=== PATIENT | female | born 1965 | race African-American/Black ===

== ENCOUNTER 2017-06-26 09:03 | Outpatient (CLI) | payer OTHER, MEDICARE, MEDICAID | END 2017-06-26 11:03 | disposition home or self-care (01) | LOC: ECT 09:03 | DX: F33.2 Major depressive disorder, recurrent severe without psychotic features (principal); F06.1 Catatonic disorder due to known physiological condition; E11.9 Type 2 diabetes mellitus without complications; Z86.718 Personal history of other venous thrombosis and embolism; Z98.51 Tubal ligation status; E11.22 Type 2 diabetes mellitus with diabetic chronic kidney disease; N18.2 Chronic kidney disease, stage 2 (mild); M26.609 Unspecified temporomandibular joint disorder, unspecified side; G24.01 Drug induced subacute dyskinesia; Z79.01 Long term (current) use of anticoagulants; Z79.84 Long term (current) use of oral hypoglycemic drugs ==

== ENCOUNTER 2017-08-13 08:29 | Outpatient (RCR) | payer OTHER, MEDICARE, MEDICAID ==
[~2017-08-13] VITALS: Ht 162.6 cm; Wt 48.1 kg
[2017-08-13] MEDS ORDERED: Methohexital Sodium Syr 100mg/10ml IVP ONE ×2 (08:30)
[2017-08-13] MEDS ORDERED: Succinylcholine 20mg/ml 10ml vial ONE ×2 (08:30)
[2017-08-13] MEDS ORDERED: NS 500ML ONE ×2 (08:30)
[2017-08-13 08:31] VITALS: BP 117/91
[2017-08-13] MEDS ORDERED: Sodium Chloride 500ML 500 ML IV ONE (08:46)
[2017-08-13 08:50] VITALS: BP 152/98
[2017-08-13 08:55] VITALS: BP 161/98
[2017-08-13 09:00] VITALS: BP 152/96
[2017-08-13 09:05] VITALS: BP 155/101
[2017-08-15] MEDS ORDERED: Methohexital Sodium Syr 100mg/10ml IVP ONE (07:00)
[2017-08-15] MEDS ORDERED: NS 500ML ONE (07:00)
[2017-08-15] MEDS ORDERED: Succinylcholine 20mg/ml 10ml vial ONE (07:00)
[2017-08-15 08:21] VITALS: BP 131/96
[2017-08-15] MEDS ORDERED: Sodium Chloride 500ML 500 ML IV ONE (08:33)
[2017-08-15 08:35] VITALS: BP 157/103
[2017-08-15 08:40] VITALS: BP 160/103
[2017-08-15 08:45] VITALS: BP 164/97
[2017-08-15 08:50] VITALS: BP 159/102
[2017-08-18] MEDS ORDERED: Methohexital Sodium Syr 100mg/10ml IVP ONE (07:00)
[2017-08-18] MEDS ORDERED: Succinylcholine 20mg/ml 10ml vial ONE (07:00)
[2017-08-18] MEDS ORDERED: NS 500ML ONE (07:00)
[2017-08-18 08:47] VITALS: BP 139/101
[2017-08-18 09:00] VITALS: BP 153/103
[2017-08-18] MEDS ORDERED: Sodium Chloride 500ML 500 ML IV ONE (09:00)
[2017-08-18 09:05] VITALS: BP 154/99
[2017-08-18 09:10] VITALS: BP 150/83
[2017-08-18 09:15] VITALS: BP 153/94
[2017-08-20 08:35] VITALS: BP 121/100
[2017-08-20] MEDS ORDERED: Sodium Chloride 500ML 500 ML IV ONE (08:48)
[2017-08-20 08:50] VITALS: BP 161/109
[2017-08-20 08:55] VITALS: BP 155/104
[2017-08-20 09:00] VITALS: BP 151/103
[2017-08-20 09:05] VITALS: BP 157/99
[2017-08-22] MEDS ORDERED: Methohexital Sodium Syr 100mg/10ml IVP ONE (06:00)
[2017-08-22] MEDS ORDERED: Succinylcholine 20mg/ml 10ml vial ONE (06:00)
[2017-08-22] MEDS ORDERED: NS 500ML ONE (06:00)
[2017-08-22 08:06] VITALS: BP 117/98
[2017-08-22] MEDS ORDERED: Sodium Chloride 500ML 500 ML IV ONE (08:23)
[2017-08-22 08:25] VITALS: BP 170/108
[2017-08-22 08:30] VITALS: BP 164/84
[2017-08-22 08:35] VITALS: BP 160/102
[2017-08-22 08:40] VITALS: BP_SYST 160; BP_SYST 165; BP_DIAS 107; BP_DIAS 86
[2017-08-25] MEDS ORDERED: Succinylcholine 20mg/ml 10ml vial ONE (07:00)
[2017-08-25] MEDS ORDERED: NS 500ML ONE (07:00)
[2017-08-25] MEDS ORDERED: Methohexital Sodium Syr 100mg/10ml IVP ONE (07:00)
[2017-08-25 11:14] VITALS: BP 128/93
[2017-08-25] MEDS ORDERED: Atropine Sulfate 0.4mg/ml inj IVP PRN (11:32)
[2017-08-25] MEDS ORDERED: Sodium Chloride 500ML 500 ML IV ONE (11:32)
[2017-08-25 11:40] VITALS: BP 169/110
[2017-08-25 11:50] VITALS: BP 165/111
[2017-08-25 11:55] VITALS: BP 139/89
[2017-08-25 12:00] VITALS: BP 134/98
[2017-08-27] MEDS ORDERED: Methohexital Sodium Syr 100mg/10ml IVP ONE (07:00)
[2017-08-27] MEDS ORDERED: Succinylcholine 20mg/ml 10ml vial ONE (07:00)
[2017-08-27] MEDS ORDERED: NS 500ML ONE (07:00)
[2017-08-27 09:16] VITALS: BP 144/108
[2017-08-27] MEDS ORDERED: Atropine Sulfate 0.4mg/ml inj IVP PRN (09:33)
[2017-08-27] MEDS ORDERED: Sodium Chloride 500ML 500 ML IV ONE (09:33)
[2017-08-27 09:35] VITALS: BP 175/102
[2017-08-27 09:40] VITALS: BP 170/102
[2017-08-27 09:45] VITALS: BP 162/99
[2017-08-27 09:50] VITALS: BP 158/99
[2017-08-29] MEDS ORDERED: Methohexital Sodium Syr 100mg/10ml IVP ONE (07:00)
[2017-08-29] MEDS ORDERED: Succinylcholine 20mg/ml 10ml vial ONE (07:00)
[2017-08-29] MEDS ORDERED: NS 500ML ONE (07:00)
[2017-08-29 10:22] VITALS: BP 141/101
[2017-08-29] MEDS ORDERED: Sodium Chloride 500ML 500 ML IV ONE (10:44)
[2017-08-29 10:45] VITALS: BP 151/105
[2017-08-29 10:50] VITALS: BP 151/97
[2017-08-29 10:55] VITALS: BP 160/101
[2017-08-29 11:00] VITALS: BP 151/89
[2017-09-01] MEDS ORDERED: Methohexital Sodium Syr 100mg/10ml IVP ONE (07:00)
[2017-09-01] MEDS ORDERED: Succinylcholine 20mg/ml 10ml vial ONE (07:00)
[2017-09-01] MEDS ORDERED: NS 500ML ONE (07:00)
[2017-09-01 11:06] VITALS: BP 112/93
[2017-09-01] MEDS ORDERED: Sodium Chloride 500ML 500 ML IV ONE (11:23)
[2017-09-01 11:25] VITALS: BP 166/109
[2017-09-01 11:30] VITALS: BP 159/102
[2017-09-01 11:35] VITALS: BP_SYST 160; BP_SYST 161; BP_DIAS 101; BP_DIAS 95
[2017-09-03] MEDS ORDERED: Methohexital Sodium Syr 100mg/10ml IVP ONE (08:30)
[2017-09-03] MEDS ORDERED: Succinylcholine 20mg/ml 10ml vial ONE (08:30)
[2017-09-03] MEDS ORDERED: NS 500ML ONE (08:30)
[2017-09-03 11:27] VITALS: BP 146/95
[2017-09-03 11:50] VITALS: BP 178/112
[2017-09-03] MEDS ORDERED: Sodium Chloride 500ML 500 ML IV ONE (11:52)
[2017-09-03] MEDS ORDERED: Atropine Sulfate 0.4mg/ml inj IVP PRN (11:52)
[2017-09-03 11:55] VITALS: BP 175/110
[2017-09-03 12:00] VITALS: BP 159/117
[2017-09-03 12:05] VITALS: BP 162/100
[2017-09-05] MEDS ORDERED: Succinylcholine 20mg/ml 10ml vial ONE (08:00)
[2017-09-05] MEDS ORDERED: NS 500ML ONE (08:00)
[2017-09-05] MEDS ORDERED: Methohexital Sodium Syr 100mg/10ml IVP ONE (08:00)
[2017-09-05 10:28] VITALS: BP 135/98
[2017-09-05] MEDS ORDERED: Sodium Chloride 500ML 500 ML IV ONE (10:48)
[2017-09-05 10:50] VITALS: BP 156/101
[2017-09-05 11:00] VITALS: BP 160/101
[2017-09-05 11:05] VITALS: BP 161/102
[2017-09-05 11:10] VITALS: BP 147/101
[2017-09-05 11:15] VITALS: BP 167/98
[2017-09-10] MEDS ORDERED: Succinylcholine 20mg/ml 10ml vial ONE (07:00)
[2017-09-10] MEDS ORDERED: NS 500ML ONE (07:00)
[2017-09-10] MEDS ORDERED: Methohexital Sodium Syr 100mg/10ml IVP ONE (07:00)
[2017-09-10 11:27] VITALS: BP 130/93
[2017-09-10 11:42] VITALS: BP 156/103
[2017-09-10 11:47] VITALS: BP 146/99
[2017-09-10] MEDS ORDERED: Sodium Chloride 500ML 500 ML IV ONE (11:48)
[2017-09-10 11:52] VITALS: BP 144/98
[2017-09-10 11:57] VITALS: BP 146/93
== END 2017-09-11 | disposition home or self-care (01) ==
LOC: ECT 08:29
DX: F32.2 Major depressive disorder, single episode, severe without psychotic features (principal)
CPT/HCPCS: 90870; J0330; J7040

== ENCOUNTER 2017-09-12 08:29 | Outpatient (RCR) | payer OTHER, MEDICARE, MEDICAID ==
[~2017-09-12] VITALS: Ht 162.6 cm; Wt 48.1 kg
[2017-09-12] MEDS ORDERED: NS 500ML ONE ×2 (08:30)
[2017-09-12] MEDS ORDERED: Methohexital Sodium Syr 100mg/10ml IVP ONE ×2 (08:30)
[2017-09-12] MEDS ORDERED: Succinylcholine 20mg/ml 10ml vial ONE ×2 (08:30)
[2017-09-12] MEDS ORDERED: Sodium Chloride 500ML 500 ML IV ONE (09:30)
[2017-09-12 09:38] VITALS: BP 132/104
[2017-09-12 09:50] VITALS: BP 146/98
[2017-09-12 09:55] VITALS: BP 153/99
[2017-09-12 10:00] VITALS: BP 153/100
[2017-09-12 10:05] VITALS: BP 154/100
[2017-09-15] MEDS ORDERED: Methohexital Sodium Syr 100mg/10ml IVP ONE (07:00)
[2017-09-15] MEDS ORDERED: NS 500ML ONE (07:00)
[2017-09-15] MEDS ORDERED: Succinylcholine 20mg/ml 10ml vial ONE (07:00)
[2017-09-15 10:07] VITALS: BP 130/90
[2017-09-15] MEDS ORDERED: Sodium Chloride 500ML 500 ML IV ONE (10:22)
[2017-09-15 10:25] VITALS: BP 146/103
[2017-09-15 10:30] VITALS: BP 152/104
[2017-09-15 10:35] VITALS: BP 152/90
[2017-09-15 10:40] VITALS: BP 152/94
[2017-09-17] MEDS ORDERED: Methohexital Sodium Syr 100mg/10ml IVP ONE (07:00)
[2017-09-17] MEDS ORDERED: Succinylcholine 20mg/ml 10ml vial ONE (07:00)
[2017-09-17] MEDS ORDERED: NS 500ML ONE (07:00)
[2017-09-17 09:15] VITALS: BP 139/103
[2017-09-17] MEDS ORDERED: Sodium Chloride 500ML 500 ML IV ONE (09:26)
[2017-09-17 09:30] VITALS: BP 165/104
[2017-09-17 09:35] VITALS: BP 152/103
[2017-09-17 09:40] VITALS: BP 146/105
[2017-09-17 09:42] VITALS: BP 162/106
[2017-09-19] MEDS ORDERED: Methohexital Sodium Syr 100mg/10ml IVP ONE (07:00)
[2017-09-19] MEDS ORDERED: NS 500ML ONE (07:00)
[2017-09-19] MEDS ORDERED: Succinylcholine 20mg/ml 10ml vial ONE (07:00)
[2017-09-19 08:33] VITALS: BP 143/105
[2017-09-19] MEDS ORDERED: Sodium Chloride 500ML 500 ML IV ONE (08:51)
[2017-09-19 08:55] VITALS: BP 139/85
[2017-09-19 09:00] VITALS: BP 149/92
[2017-09-19 09:05] VITALS: BP 161/94
[2017-09-19 09:10] VITALS: BP 160/100
[2017-09-22] MEDS ORDERED: Succinylcholine 20mg/ml 10ml vial ONE (07:00)
[2017-09-22] MEDS ORDERED: NS 500ML ONE (07:00)
[2017-09-22] MEDS ORDERED: Methohexital Sodium Syr 100mg/10ml IVP ONE (07:00)
[2017-09-22 10:41] VITALS: BP 137/92
[2017-09-22] MEDS ORDERED: Sodium Chloride 500ML 500 ML IV ONE (11:03)
[2017-09-22] MEDS ORDERED: Atropine Sulfate 0.4mg/ml inj IVP PRN (11:03)
[2017-09-22 11:05] VITALS: BP 162/97
[2017-09-22 11:10] VITALS: BP 136/91
[2017-09-22 11:15] VITALS: BP 142/95
[2017-09-22 11:20] VITALS: BP 146/94
[2017-09-22 11:25] VITALS: BP 142/96
[2017-09-26] MEDS ORDERED: Succinylcholine 20mg/ml 10ml vial ONE (07:00)
[2017-09-26] MEDS ORDERED: NS 500ML ONE (07:00)
[2017-09-26] MEDS ORDERED: Methohexital Sodium Syr 100mg/10ml IVP ONE (07:00)
[2017-09-26 08:12] VITALS: BP 138/111
[2017-09-26] MEDS ORDERED: Atropine Sulfate 0.4mg/ml inj IVP PRN ×2 (08:33→08:53)
[2017-09-26] MEDS ORDERED: Sodium Chloride 500ML 500 ML IV ONE ×2 (08:33→08:53)
[2017-09-26 08:35] VITALS: BP 162/106
[2017-09-26 08:40] VITALS: BP 149/100
[2017-09-26 08:45] VITALS: BP 161/95
[2017-09-26 08:50] VITALS: BP 156/105
[2017-09-29 09:26] VITALS: BP 136/101
[2017-09-29] MEDS ORDERED: Sodium Chloride 500ML 500 ML IV ONE (09:44)
[2017-09-29 09:45] VITALS: BP 178/113
[2017-09-29 09:50] VITALS: BP 163/101
[2017-09-29 09:55] VITALS: BP 169/72
[2017-09-29 10:00] VITALS: BP 147/105
[2017-10-06] MEDS ORDERED: Succinylcholine 20mg/ml 10ml vial ONE (07:00)
[2017-10-06] MEDS ORDERED: Methohexital Sodium Syr 100mg/10ml IVP ONE (07:00)
[2017-10-06] MEDS ORDERED: NS 500ML ONE (07:00)
[2017-10-06 09:57] VITALS: BP 116/92
[2017-10-06] MEDS ORDERED: Sodium Chloride 500ML 500 ML IV ONE (10:15)
[2017-10-06 10:20] VITALS: BP 153/106
[2017-10-06 10:25] VITALS: BP 134/99
[2017-10-06 10:30] VITALS: BP 131/97
[2017-10-06 10:35] VITALS: BP 133/93
== END 2017-10-11 | disposition home or self-care (01) ==
LOC: ECT 08:29
DX: F32.2 Major depressive disorder, single episode, severe without psychotic features (principal)
CPT/HCPCS: 90870; J0330; J7040

== ENCOUNTER 2017-10-13 07:07 | Outpatient (RCR) | payer OTHER, MEDICARE, MEDICAID ==
[~2017-10-13] VITALS: Ht 162.6 cm; Wt 48.1 kg
[2017-10-13] MEDS ORDERED: NS 500ML ONE (07:08)
[2017-10-13] MEDS ORDERED: Succinylcholine 20mg/ml 10ml vial ONE (07:08)
[2017-10-13] MEDS ORDERED: Methohexital Sodium Syr 100mg/10ml IVP ONE (07:08)
[2017-10-13] MEDS ORDERED: Sodium Chloride 500ML 500 ML IV ONE (10:12)
[2017-10-13 10:15] VITALS: BP 160/98
[2017-10-13 10:20] VITALS: BP 142/93
[2017-10-13 10:25] VITALS: BP 145/74
[2017-10-13 10:30] VITALS: BP 141/92
[2017-10-13 10:35] VITALS: BP 147/93
[2017-10-20] MEDS ORDERED: Succinylcholine 20mg/ml 10ml vial ONE (07:00)
[2017-10-20] MEDS ORDERED: NS 500ML ONE (07:00)
[2017-10-20] MEDS ORDERED: Methohexital Sodium Syr 100mg/10ml IVP ONE (07:00)
[2017-10-20] MEDS ORDERED: Sodium Chloride 500ML 500 ML IV ONE (10:23)
[2017-10-20 10:25] VITALS: BP 172/112
[2017-10-20 10:30] VITALS: BP 162/108
[2017-10-20 10:35] VITALS: BP 162/102
[2017-10-20 10:40] VITALS: BP 162/102
[2017-10-20 10:45] VITALS: BP 161/102
[2017-10-20 10:50] VITALS: BP 162/105
[2017-10-29] MEDS ORDERED: Succinylcholine 20mg/ml 10ml vial ONE (08:00)
[2017-10-29] MEDS ORDERED: NS 500ML ONE (08:00)
[2017-10-29] MEDS ORDERED: Methohexital Sodium Syr 100mg/10ml IVP ONE (08:00)
[2017-10-29] MEDS ORDERED: Sodium Chloride 500ML 500 ML IV ONE (10:47)
[2017-10-29 10:50] VITALS: BP 168/107
[2017-10-29 10:55] VITALS: BP 161/104
[2017-10-29 11:00] VITALS: BP 161/99
[2017-10-29 11:05] VITALS: BP 155/101
[2017-10-29 11:10] VITALS: BP 165/92
== END 2017-11-11 | disposition home or self-care (01) ==
LOC: ECT 07:07
DX: F32.2 Major depressive disorder, single episode, severe without psychotic features (principal)
CPT/HCPCS: 90870; J0330; J7040

== ENCOUNTER 2017-11-12 05:39 | Outpatient (RCR) | payer OTHER, MEDICARE, MEDICAID ==
[~2017-11-12] VITALS: Ht 162.6 cm; Wt 48.1 kg
[2017-11-12] MEDS ORDERED: NS 500ML ONE (05:40)
[2017-11-12] MEDS ORDERED: Methohexital Sodium Syr 100mg/10ml IVP ONE (05:40)
[2017-11-12] MEDS ORDERED: Succinylcholine 20mg/ml 10ml vial ONE (05:40)
[2017-11-12 08:51] VITALS: BP 111/92
[2017-11-12 09:10] VITALS: BP 162/101
[2017-11-12] MEDS ORDERED: Sodium Chloride 500ML 500 ML IV ONE (09:10)
[2017-11-12 09:15] VITALS: BP 141/94
[2017-11-12 09:20] VITALS: BP 147/91
[2017-11-12 09:25] VITALS: BP 121/86
[2017-12-03] MEDS ORDERED: Succinylcholine 20mg/ml 10ml vial ONE (08:00)
[2017-12-03] MEDS ORDERED: NS 500ML ONE (08:00)
[2017-12-03] MEDS ORDERED: Methohexital Sodium Syr 100mg/10ml IVP ONE (08:00)
[2017-12-03 09:09] VITALS: BP 132/91
[2017-12-03] MEDS ORDERED: Sodium Chloride 500ML 500 ML IV ONE (09:22)
[2017-12-03 09:25] VITALS: BP 167/104
[2017-12-03 09:30] VITALS: BP 162/106
[2017-12-03 09:35] VITALS: BP 151/100
[2017-12-03 09:40] VITALS: BP 162/100
== END 2017-12-12 | disposition home or self-care (01) ==
LOC: ECT 05:39
DX: F32.2 Major depressive disorder, single episode, severe without psychotic features (principal)
CPT/HCPCS: 90870; J0330; J7040

== ENCOUNTER 2017-12-31 05:41 | Outpatient (RCR) | payer OTHER, MEDICARE, MEDICAID ==
[~2017-12-31] VITALS: Ht 30.5 cm; Wt 0.5 kg
[2017-12-31] MEDS ORDERED: Succinylcholine 20mg/ml 10ml vial ONE (05:42)
[2017-12-31] MEDS ORDERED: Methohexital Sodium Syr 100mg/10ml IVP ONE (05:42)
[2017-12-31] MEDS ORDERED: NS 500ML ONE (05:42)
[2017-12-31 09:45] VITALS: BP 142/101
[2017-12-31] MEDS ORDERED: Sodium Chloride 500ML 500 ML IV ONE (09:58)
[2017-12-31 10:00] VITALS: BP 183/112
[2017-12-31 10:05] VITALS: BP 175/108
[2017-12-31 10:10] VITALS: BP 165/109
[2017-12-31 10:15] VITALS: BP 155/105
== END 2018-01-11 | disposition home or self-care (01) ==
LOC: ECT 05:41
DX: F32.2 Major depressive disorder, single episode, severe without psychotic features (principal)
CPT/HCPCS: 90870; J0330; J7040

== ENCOUNTER 2018-01-26 08:40 | Outpatient (RCR) | payer OTHER, MEDICARE, MEDICAID ==
[~2018-01-26] VITALS: Ht 30.5 cm; Wt 0.5 kg
[2018-01-26 08:40] VITALS: BP 154/109
[2018-01-26] MEDS ORDERED: NS 500ML ONE (08:41)
[2018-01-26] MEDS ORDERED: Methohexital Sodium Syr 100mg/10ml IVP ONE (08:41)
[2018-01-26] MEDS ORDERED: Succinylcholine 20mg/ml 10ml vial ONE (08:41)
[2018-01-26] MEDS ORDERED: Sodium Chloride 500ML 500 ML IV ONE (08:51)
[2018-01-26 08:55] VITALS: BP 170/106
[2018-01-26 09:00] VITALS: BP 168/99
[2018-01-26 09:05] VITALS: BP 163/96
[2018-01-26 09:10] VITALS: BP 167/91
== END 2018-02-11 | disposition home or self-care (01) ==
LOC: ECT 08:40
DX: F32.2 Major depressive disorder, single episode, severe without psychotic features (principal)
CPT/HCPCS: 90870; J0330; J7040

== ENCOUNTER 2018-02-23 06:00 | Outpatient (RCR) | payer OTHER, MEDICARE, MEDICAID ==
[~2018-02-23] VITALS: Ht 162.6 cm; Wt 48.1 kg
[2018-02-23] MEDS ORDERED: NS 500ML ONE ×2 (06:01)
[2018-02-23] MEDS ORDERED: Methohexital Sodium Syr 100mg/10ml IVP ONE ×2 (06:01)
[2018-02-23] MEDS ORDERED: Succinylcholine 20mg/ml 10ml vial ONE ×2 (06:01)
[2018-02-25] MEDS ORDERED: NS 500ML ONE (06:00)
[2018-02-25] MEDS ORDERED: Succinylcholine 20mg/ml 10ml vial ONE (06:00)
[2018-02-25] MEDS ORDERED: Methohexital Sodium Syr 100mg/10ml IVP ONE (06:00)
[2018-02-25 09:41] VITALS: BP 160/94
[2018-02-25 09:55] VITALS: BP 168/64
[2018-02-25] MEDS ORDERED: Sodium Chloride 500ML 500 ML IV ONE (09:55)
[2018-02-25 10:00] VITALS: BP 164/103
[2018-02-25 10:05] VITALS: BP 168/102
[2018-02-25 10:10] VITALS: BP 161/111
[2018-02-27] MEDS ORDERED: fentaNYL 100 mcg/2 mL IV ONE (09:53)
[2018-03-02 09:56] VITALS: BP 149/102
[2018-03-02] MEDS ORDERED: Sodium Chloride 500ML 500 ML IV ONE (10:14)
[2018-03-02 10:15] VITALS: BP 165/106
[2018-03-02 10:20] VITALS: BP 159/104
[2018-03-02 10:25] VITALS: BP 154/99
[2018-03-02 10:30] VITALS: BP 153/104
[2018-03-04 10:34] VITALS: BP 123/97
[2018-03-04] MEDS ORDERED: Sodium Chloride 500ML 500 ML IV ONE (10:47)
[2018-03-04 10:50] VITALS: BP 109/57
[2018-03-04 10:55] VITALS: BP 147/20
[2018-03-04 11:00] VITALS: BP 144/75
[2018-03-09] MEDS ORDERED: Succinylcholine 20mg/ml 10ml vial ONE ×2 (08:00→14:56)
[2018-03-09] MEDS ORDERED: Methohexital Sodium Syr 100mg/10ml IVP ONE ×2 (08:00→14:56)
[2018-03-09] MEDS ORDERED: NS 500ML ONE ×2 (08:00→14:56)
[2018-03-09 10:35] VITALS: BP 139/89
[2018-03-09] MEDS ORDERED: Sodium Chloride 500ML 500 ML IV ONE (10:49)
[2018-03-09 10:50] VITALS: BP 168/104
[2018-03-09 10:55] VITALS: BP 166/114
[2018-03-09 11:00] VITALS: BP 152/88
== END 2018-03-13 | disposition home or self-care (01) ==
LOC: ECT 06:00
DX: F32.2 Major depressive disorder, single episode, severe without psychotic features (principal)
CPT/HCPCS: 90870; J0330; J7040

== ENCOUNTER 2018-03-16 06:09 | Outpatient (RCR) | payer MEDICARE, MEDICAID ==
[~2018-03-16] VITALS: Ht 162.6 cm; Wt 48.4 kg
[2018-03-16] MEDS ORDERED: Succinylcholine 20mg/ml 10ml vial ONE ×2 (06:10)
[2018-03-16] MEDS ORDERED: NS 500ML ONE ×2 (06:10)
[2018-03-16] MEDS ORDERED: Methohexital Sodium Syr 100mg/10ml IVP ONE ×2 (06:10)
[2018-03-16 09:20] VITALS: BP 139/118
[2018-03-16] MEDS ORDERED: Sodium Chloride 500ML 500 ML IV ONE (09:38)
[2018-03-16] MEDS ORDERED: Atropine Sulfate 0.4mg/ml inj IVP PRN (09:38)
[2018-03-16 09:40] VITALS: BP 158/102
[2018-03-16 09:45] VITALS: BP 165/103
[2018-03-16 09:50] VITALS: BP 178/52
[2018-03-16 09:55] VITALS: BP 158/102
[2018-03-30 10:12] VITALS: BP 139/105
[2018-03-30] MEDS ORDERED: Sodium Chloride 500ML 500 ML IV ONE (10:26)
[2018-03-30 10:30] VITALS: BP 169/103
[2018-03-30 10:35] VITALS: BP 161/112
[2018-03-30 10:40] VITALS: BP 160/95
[2018-03-30 10:45] VITALS: BP 150/105
== END 2018-04-13 | disposition home or self-care (01) ==
LOC: ECT 06:09
DX: F32.2 Major depressive disorder, single episode, severe without psychotic features (principal); E78.5 Hyperlipidemia, unspecified
CPT/HCPCS: 90870; J0330; J7040

== ENCOUNTER 2018-04-20 07:58 | Outpatient (RCR) | payer MEDICARE, MEDICAID ==
[~2018-04-20] VITALS: Ht 162.6 cm; Wt 48.1 kg
[2018-04-20] MEDS ORDERED: Methohexital Sodium Syr 100mg/10ml IVP ONE (07:59)
[2018-04-20] MEDS ORDERED: Succinylcholine 20mg/ml 10ml vial ONE (07:59)
[2018-04-20] MEDS ORDERED: NS 500ML ONE (07:59)
[2018-04-20 09:30] VITALS: BP 137/92
[2018-04-20 09:50] VITALS: BP 156/104
[2018-04-20 09:55] VITALS: BP 151/96
[2018-04-20 10:00] VITALS: BP 151/93
[2018-04-20 10:05] VITALS: BP 157/104
[2018-05-11] MEDS ORDERED: Succinylcholine 20mg/ml 10ml vial ONE (07:00)
[2018-05-11] MEDS ORDERED: Methohexital Sodium Syr 100mg/10ml IVP ONE (07:00)
[2018-05-11] MEDS ORDERED: NS 500ML ONE (07:00)
[2018-05-11 09:34] VITALS: BP 136/75
[2018-05-11 09:55] VITALS: BP 177/106
[2018-05-11 10:00] VITALS: BP 169/98
[2018-05-11 10:05] VITALS: BP 151/88
[2018-05-11 10:10] VITALS: BP 148/92
== END 2018-05-14 | disposition home or self-care (01) ==
LOC: ECT 07:58
DX: F32.2 Major depressive disorder, single episode, severe without psychotic features (principal); F06.1 Catatonic disorder due to known physiological condition; F25.9 Schizoaffective disorder, unspecified; Z98.51 Tubal ligation status; G24.01 Drug induced subacute dyskinesia; Z86.718 Personal history of other venous thrombosis and embolism; E11.22 Type 2 diabetes mellitus with diabetic chronic kidney disease; N18.2 Chronic kidney disease, stage 2 (mild)
CPT/HCPCS: 90870; J0330; J7040

== ENCOUNTER 2018-05-27 08:30 | Outpatient (RCR) | payer MEDICARE, MEDICAID ==
[~2018-05-27] VITALS: Ht 162.6 cm; Wt 48.4 kg
[2018-05-27 10:31] VITALS: BP 162/119
[2018-05-27 10:45] VITALS: BP 167/109
[2018-05-27 10:50] VITALS: BP 166/116
[2018-05-27 10:55] VITALS: BP 164/116
[2018-05-27 11:00] VITALS: BP 141/99
[2018-05-28] MEDS ORDERED: NS 500ML ONE (07:00)
[2018-05-28] MEDS ORDERED: Succinylcholine 20mg/ml 10ml vial ONE (07:00)
[2018-05-28] MEDS ORDERED: Methohexital Sodium Syr 100mg/10ml IVP ONE (07:00)
[2018-05-29] MEDS ORDERED: NS 500ML ONE (06:00)
[2018-05-29] MEDS ORDERED: Methohexital Sodium Syr 100mg/10ml IVP ONE (06:00)
[2018-05-29] MEDS ORDERED: Succinylcholine 20mg/ml 10ml vial ONE (06:00)
[2018-05-29 09:16] VITALS: BP 151/89
[2018-05-29 09:30] VITALS: BP 155/103
[2018-05-29 09:35] VITALS: BP 139/95
[2018-05-29 09:40] VITALS: BP 119/83
[2018-05-29 09:45] VITALS: BP 122/93
[2018-06-03] MEDS ORDERED: Methohexital Sodium Syr 100mg/10ml IVP ONE (06:00)
[2018-06-03] MEDS ORDERED: NS 500ML ONE (06:00)
[2018-06-03] MEDS ORDERED: Succinylcholine 20mg/ml 10ml vial ONE (06:00)
[2018-06-03 09:47] VITALS: BP 144/105
[2018-06-03 10:05] VITALS: BP 177/114
[2018-06-03 10:10] VITALS: BP 175/118
[2018-06-03 10:15] VITALS: BP 165/126
[2018-06-03 10:20] VITALS: BP 153/91
== END 2018-06-11 | disposition home or self-care (01) ==
LOC: ECT 08:30
DX: F32.2 Major depressive disorder, single episode, severe without psychotic features (principal)
CPT/HCPCS: 90870; J0330; J7040

== ENCOUNTER 2018-06-15 10:41 | Outpatient (RCR) | payer MEDICARE, MEDICAID ==
[~2018-06-15] VITALS: Ht 162.6 cm; Wt 48.4 kg
[2018-06-15 09:29] VITALS: BP 119/88
[2018-06-15 09:45] VITALS: BP 176/110
[2018-06-15 09:50] VITALS: BP 168/105
[2018-06-15 09:55] VITALS: BP 146/92
[2018-06-15 10:00] VITALS: BP 142/89
[2018-06-15] MEDS ORDERED: Methohexital Sodium Syr 100mg/10ml IVP ONE (10:42)
[2018-06-15] MEDS ORDERED: Succinylcholine 20mg/ml 10ml vial ONE (10:42)
[2018-06-15] MEDS ORDERED: NS 500ML ONE (10:42)
[2018-06-24] MEDS ORDERED: Methohexital Sodium Syr 100mg/10ml IVP ONE (07:00)
[2018-06-24] MEDS ORDERED: NS 500ML ONE (07:00)
[2018-06-24] MEDS ORDERED: Succinylcholine 20mg/ml 10ml vial ONE (07:00)
[2018-06-24 08:37] VITALS: BP 121/92
[2018-06-24 08:50] VITALS: BP 145/102
[2018-06-24 08:55] VITALS: BP 150/97
[2018-06-24 09:00] VITALS: BP 145/91
[2018-06-24 09:05] VITALS: BP 146/96
[2018-06-24 09:10] VITALS: BP 141/99
[2018-07-08] MEDS ORDERED: Succinylcholine 20mg/ml 10ml vial ONE (07:00)
[2018-07-08] MEDS ORDERED: Methohexital Sodium Syr 100mg/10ml IVP ONE (07:00)
[2018-07-08] MEDS ORDERED: NS 500ML ONE (07:00)
[2018-07-08 09:02] VITALS: BP 144/100
[2018-07-08 09:15] VITALS: BP 172/102
[2018-07-08 09:20] VITALS: BP 145/89
[2018-07-08 09:25] VITALS: BP 145/98
[2018-07-08 09:30] VITALS: BP 149/98
== END 2018-07-12 | disposition home or self-care (01) ==
LOC: ECT 10:41
DX: F32.2 Major depressive disorder, single episode, severe without psychotic features (principal)
CPT/HCPCS: 90870; J0330; J7040

== ENCOUNTER 2018-07-22 07:40 | Outpatient (RCR) | payer MEDICARE, MEDICAID ==
[~2018-07-22] VITALS: Ht 30.5 cm; Wt 0.5 kg
[2018-07-22] MEDS ORDERED: Succinylcholine 20mg/ml 10ml vial ONE (07:41)
[2018-07-22] MEDS ORDERED: Methohexital Sodium Syr 100mg/10ml IVP ONE (07:41)
[2018-07-22] MEDS ORDERED: NS 500ML ONE (07:41)
[2018-07-22 09:58] VITALS: BP 140/95
[2018-07-22 10:15] VITALS: BP 158/99
[2018-07-22 10:20] VITALS: BP 154/89
[2018-07-22 10:25] VITALS: BP 147/97
[2018-07-22 10:30] VITALS: BP 154/104
[2018-08-05] MEDS ORDERED: NS 500ML ONE (09:00)
[2018-08-05] MEDS ORDERED: Succinylcholine 20mg/ml 10ml vial ONE (09:00)
[2018-08-05] MEDS ORDERED: Methohexital Sodium Syr 100mg/10ml IVP ONE (09:00)
[2018-08-05 09:30] VITALS: BP 135/97
[2018-08-05 09:45] VITALS: BP 163/105
[2018-08-05 09:50] VITALS: BP 160/101
[2018-08-05 09:55] VITALS: BP 153/105
[2018-08-05 10:00] VITALS: BP 151/92
== END 2018-08-11 | disposition home or self-care (01) ==
LOC: ECT 07:40
DX: F32.2 Major depressive disorder, single episode, severe without psychotic features (principal)
CPT/HCPCS: 90870; J0330; J7040

== ENCOUNTER 2018-08-21 04:25 | Outpatient (RCR) | payer MEDICARE, MEDICAID ==
[~2018-08-21] VITALS: Ht 162.6 cm; Wt 48.1 kg
[2018-08-21] MEDS ORDERED: Methohexital Sodium Syr 100mg/10ml IVP ONE ×2 (04:26)
[2018-08-21] MEDS ORDERED: Succinylcholine 20mg/ml 10ml vial ONE ×2 (04:26)
[2018-08-21] MEDS ORDERED: NS 500ML ONE ×2 (04:26)
[2018-08-21 08:38] VITALS: BP 143/97
[2018-08-21 08:53] VITALS: BP 180/114
[2018-08-21 08:58] VITALS: BP 154/97
[2018-08-21 09:03] VITALS: BP 147/98
[2018-08-21 09:08] VITALS: BP 149/92
[2018-09-09 09:33] VITALS: BP 144/102
[2018-09-09 09:45] VITALS: BP 174/109
[2018-09-09 09:50] VITALS: BP 160/107
[2018-09-09 09:55] VITALS: BP 164/97
[2018-09-09 10:00] VITALS: BP 159/100
== END 2018-09-11 | disposition home or self-care (01) ==
LOC: ECT 04:25
DX: F32.2 Major depressive disorder, single episode, severe without psychotic features (principal)
CPT/HCPCS: 90870; J0330; J7040

== ENCOUNTER 2018-09-30 07:00 | Outpatient (RCR) | payer MEDICARE, MEDICAID ==
[~2018-09-30] VITALS: Ht 162.6 cm; Wt 48.1 kg
[~2018-09-30 07:00] MED LIST: Methohexital Sodium Syr 100mg/10ml IVP ONE; NS 500ML ONE; Succinylcholine 20mg/ml 10ml vial ONE
[2018-09-30 09:13] VITALS: BP 133/91
[2018-09-30 09:29] VITALS: BP 163/97
[2018-09-30 09:34] VITALS: BP 158/104
[2018-09-30 09:39] VITALS: BP 159/99
[2018-09-30 09:44] VITALS: BP 144/85
== END 2018-10-11 | disposition home or self-care (01) ==
LOC: ECT 07:00
DX: F32.2 Major depressive disorder, single episode, severe without psychotic features (principal)
CPT/HCPCS: 90870; J0330; J7040

== ENCOUNTER 2018-10-19 04:33 | Outpatient (RCR) | payer MEDICARE, MEDICAID ==
[~2018-10-19] VITALS: Ht 162.6 cm; Wt 48.1 kg
[2018-10-19] MEDS ORDERED: Succinylcholine 20mg/ml 10ml vial ONE (06:00)
[2018-10-19] MEDS ORDERED: Methohexital Sodium Syr 100mg/10ml IVP ONE (06:00)
[2018-10-19] MEDS ORDERED: NS 500ML ONE (06:00)
[2018-10-19 08:53] VITALS: BP 143/107
[2018-10-19 09:05] VITALS: BP 178/106
[2018-10-19 09:10] VITALS: BP 154/95
[2018-10-19 09:15] VITALS: BP 154/95
[2018-10-19 09:20] VITALS: BP 141/89
[2018-11-09] MEDS ORDERED: NS 500ML ONE (06:00)
[2018-11-09] MEDS ORDERED: Succinylcholine 20mg/ml 10ml vial ONE (06:00)
[2018-11-09] MEDS ORDERED: Methohexital Sodium Syr 100mg/10ml IVP ONE (06:00)
[2018-11-09 09:18] VITALS: BP 139/92
[2018-11-09 09:29] VITALS: BP 181/103
[2018-11-09 09:34] VITALS: BP 179/103
[2018-11-09 09:39] VITALS: BP 162/94
[2018-11-09 09:44] VITALS: BP 159/96
[2018-11-10] MEDS ORDERED: NS 500ML ONE (06:00)
[2018-11-10] MEDS ORDERED: Succinylcholine 20mg/ml 10ml vial ONE (06:00)
[2018-11-10] MEDS ORDERED: Methohexital Sodium Syr 100mg/10ml IVP ONE (06:00)
== END 2018-11-11 | disposition home or self-care (01) ==
LOC: ECT 04:33
DX: F32.2 Major depressive disorder, single episode, severe without psychotic features (principal)
CPT/HCPCS: 90870; J0330; J7040

== ENCOUNTER 2018-11-30 06:19 | Outpatient (RCR) | payer MEDICARE, MEDICAID ==
[~2018-11-30] VITALS: Ht 162.6 cm; Wt 48.1 kg
[2018-11-30] MEDS ORDERED: Methohexital Sodium Syr 100mg/10ml IVP ONE (06:20)
[2018-11-30] MEDS ORDERED: NS 500ML ONE (06:20)
[2018-11-30] MEDS ORDERED: Succinylcholine 20mg/ml 10ml vial ONE (06:20)
[2018-11-30 09:18] VITALS: BP 127/96
[2018-11-30 09:31] VITALS: BP 172/99
[2018-11-30 09:36] VITALS: BP 163/100
[2018-11-30 09:41] VITALS: BP 136/76
[2018-11-30 09:46] VITALS: BP 150/90
== END 2018-12-12 | disposition home or self-care (01) ==
LOC: ECT 06:19
DX: F32.2 Major depressive disorder, single episode, severe without psychotic features (principal)
CPT/HCPCS: 90870; J0330; J7040

== ENCOUNTER 2018-12-21 07:01 | Outpatient (RCR) | payer MEDICARE, MEDICAID ==
[~2018-12-21] VITALS: Ht 162.6 cm; Wt 48.1 kg
[2018-12-21 09:38] VITALS: BP 133/85
[2018-12-21 09:51] VITALS: BP 163/96
[2018-12-21 09:56] VITALS: BP 148/89
[2018-12-21 10:01] VITALS: BP 144/87
[2018-12-21 10:06] VITALS: BP 141/89
[2019-01-11] MEDS ORDERED: Methohexital Sodium Syr 100mg/10ml IVP ONE (06:00)
[2019-01-11] MEDS ORDERED: NS 500ML ONE (06:00)
[2019-01-11] MEDS ORDERED: Succinylcholine 20mg/ml 10ml vial ONE (06:00)
[2019-01-11 09:25] VITALS: BP 122/91
[2019-01-11 09:37] VITALS: BP 161/104
[2019-01-11 09:42] VITALS: BP 151/101
[2019-01-11 09:47] VITALS: BP 150/100
[2019-01-11 09:52] VITALS: BP 147/89
== END 2019-01-11 | disposition home or self-care (01) ==
LOC: ECT 07:01
DX: F32.2 Major depressive disorder, single episode, severe without psychotic features (principal)
CPT/HCPCS: 90870; J0330; J7040

== ENCOUNTER 2019-02-01 04:22 | Outpatient (RCR) | payer MEDICARE, MEDICAID ==
[~2019-02-01] VITALS: Ht 162.6 cm; Wt 48.1 kg
[2019-02-01] MEDS ORDERED: NS 500ML ONE (06:00)
[2019-02-01] MEDS ORDERED: Methohexital Sodium Syr 100mg/10ml IVP ONE (06:00)
[2019-02-01] MEDS ORDERED: Succinylcholine 20mg/ml 10ml vial ONE (06:00)
[2019-02-01 08:53] VITALS: BP 113/86
[2019-02-01 09:04] VITALS: BP 162/102
[2019-02-01 09:09] VITALS: BP 149/95
[2019-02-01 09:14] VITALS: BP 144/89
[2019-02-01 09:19] VITALS: BP 135/85
== END 2019-02-11 | disposition home or self-care (01) ==
LOC: ECT 04:22
DX: F32.2 Major depressive disorder, single episode, severe without psychotic features (principal)
CPT/HCPCS: 90870; J0330; J7040

== ENCOUNTER 2019-02-24 04:25 | Outpatient (RCR) | payer MEDICARE, MEDICAID ==
[~2019-02-24] VITALS: Ht 162.6 cm; Wt 48.1 kg
[2019-03-01] MEDS ORDERED: NS 500ML ONE (06:00)
[2019-03-01] MEDS ORDERED: Methohexital Sodium Syr 100mg/10ml IVP ONE (06:00)
[2019-03-01] MEDS ORDERED: Succinylcholine 20mg/ml 10ml vial ONE (06:00)
[2019-03-01 10:50] VITALS: BP 135/95
[2019-03-01 11:03] VITALS: BP 179/110
[2019-03-01 11:08] VITALS: BP 148/91
[2019-03-01 11:13] VITALS: BP 156/98
[2019-03-01 11:18] VITALS: BP 145/98
== END 2019-03-13 | disposition home or self-care (01) ==
LOC: ECT 04:25
DX: F32.2 Major depressive disorder, single episode, severe without psychotic features (principal)
CPT/HCPCS: 90870; J0330; J7040

== ENCOUNTER 2019-03-24 06:07 | Outpatient (RCR) | payer MEDICARE, MEDICAID ==
[~2019-03-24] VITALS: Ht 30.5 cm; Wt 0.5 kg
[2019-03-24] MEDS ORDERED: Succinylcholine 20mg/ml 10ml vial ONE (06:08)
[2019-03-24] MEDS ORDERED: NS 500ML ONE (06:08)
[2019-03-24] MEDS ORDERED: Methohexital Sodium Syr 100mg/10ml IVP ONE (06:08)
[2019-03-24 09:38] VITALS: BP 160/104
[2019-03-24 09:49] VITALS: BP 188/111
[2019-03-24 09:54] VITALS: BP 181/108
[2019-03-24 09:59] VITALS: BP 163/58
[2019-03-24 10:04] VITALS: BP 148/87
== END 2019-04-13 | disposition home or self-care (01) ==
LOC: ECT 06:07
DX: F32.2 Major depressive disorder, single episode, severe without psychotic features (principal)
CPT/HCPCS: 90870

== ENCOUNTER 2019-05-17 07:22 | Outpatient (RCR) | payer MEDICARE, MEDICAID ==
[~2019-05-17] VITALS: Ht 162.6 cm; Wt 48.1 kg
[2019-05-17] MEDS ORDERED: Methohexital Sodium Syr 100mg/10ml IVP ONE (07:23)
[2019-05-17] MEDS ORDERED: NS 500ML ONE (07:23)
[2019-05-17] MEDS ORDERED: Succinylcholine 20mg/ml 10ml vial ONE (07:23)
[2019-05-17 09:35] VITALS: BP 113/86
[2019-05-17 09:50] VITALS: BP 145/93
[2019-05-17 09:55] VITALS: BP 141/91
[2019-05-17 10:00] VITALS: BP 145/86
[2019-05-17 10:05] VITALS: BP 142/95
[2019-05-31] MEDS ORDERED: Methohexital Sodium Syr 100mg/10ml IVP ONE (06:00)
[2019-05-31] MEDS ORDERED: NS 500ML ONE (06:00)
[2019-05-31] MEDS ORDERED: Succinylcholine 20mg/ml 10ml vial ONE (06:00)
[2019-05-31 09:49] VITALS: BP 132/95
[2019-05-31 10:01] VITALS: BP 167/96
[2019-05-31 10:06] VITALS: BP 153/94
[2019-05-31 10:11] VITALS: BP 152/97
[2019-05-31 10:16] VITALS: BP 154/81
== END 2019-06-12 | disposition home or self-care (01) ==
LOC: ECT 07:22
DX: F32.2 Major depressive disorder, single episode, severe without psychotic features (principal)
CPT/HCPCS: 90870; J0330; J7040

== ENCOUNTER 2019-06-21 06:08 | Outpatient (RCR) | payer MEDICARE, MEDICAID ==
[~2019-06-21] VITALS: Ht 162.6 cm; Wt 48.1 kg
[2019-06-21] MEDS ORDERED: Methohexital Sodium Syr 100mg/10ml IVP ONE (06:09)
[2019-06-21] MEDS ORDERED: Succinylcholine 20mg/ml 10ml vial ONE (06:09)
[2019-06-21] MEDS ORDERED: NS 500ML ONE (06:09)
[2019-06-21 09:33] VITALS: BP 135/100
[2019-06-21 09:44] VITALS: BP 180/102
[2019-06-21 09:49] VITALS: BP 188/107
[2019-06-21 09:54] VITALS: BP 154/102
[2019-06-21 09:59] VITALS: BP 154/94
[2019-07-12] MEDS ORDERED: NS 500ML ONE (09:00)
[2019-07-12] MEDS ORDERED: Methohexital Sodium Syr 100mg/10ml IVP ONE (09:00)
[2019-07-12] MEDS ORDERED: Succinylcholine 20mg/ml 10ml vial ONE (09:00)
[2019-07-12 09:03] VITALS: BP 110/81
[2019-07-12] MEDS ORDERED: Atropine Sulfate 0.4mg/ml inj IVP PRN (09:24)
[2019-07-12] MEDS ORDERED: Lidocaine 2% 100mg/5ml Carp IV PRN (09:24)
[2019-07-12 09:25] VITALS: BP 150/103
[2019-07-12 09:30] VITALS: BP 145/95
[2019-07-12 09:35] VITALS: BP 140/88
[2019-07-12 09:40] VITALS: BP 137/83
== END 2019-07-13 | disposition home or self-care (01) ==
LOC: ECT 06:08
DX: F32.2 Major depressive disorder, single episode, severe without psychotic features (principal)
CPT/HCPCS: 90870; J0330; J7040

== ENCOUNTER 2019-08-02 06:04 | Outpatient (RCR) | payer MEDICARE, MEDICAID ==
[~2019-08-02] VITALS: Ht 162.6 cm; Wt 48.1 kg
[2019-08-02] MEDS ORDERED: NS 500ML ONE (06:05)
[2019-08-02] MEDS ORDERED: Succinylcholine 20mg/ml 10ml vial ONE (06:05)
[2019-08-02] MEDS ORDERED: Methohexital Sodium Syr 100mg/10ml IVP ONE (06:05)
[2019-08-02 09:47] VITALS: BP 134/86
[2019-08-02 10:04] VITALS: BP 178/105
[2019-08-02 10:09] VITALS: BP 171/104
[2019-08-02 10:14] VITALS: BP 165/122
[2019-08-02 10:19] VITALS: BP 160/118
== END 2019-08-12 | disposition home or self-care (01) ==
LOC: ECT 06:04
DX: F32.2 Major depressive disorder, single episode, severe without psychotic features (principal)
CPT/HCPCS: 90870; J0330; J7040

== ENCOUNTER 2019-08-23 06:16 | Outpatient (RCR) | payer MEDICARE, MEDICAID ==
[~2019-08-23] VITALS: Ht 162.6 cm; Wt 48.1 kg
[2019-08-23] MEDS ORDERED: NS 500ML ONE (06:17)
[2019-08-23] MEDS ORDERED: Methohexital Sodium Syr 100mg/10ml IVP ONE (06:17)
[2019-08-23] MEDS ORDERED: Succinylcholine 20mg/ml 10ml vial ONE (06:17)
[2019-08-23 09:45] VITALS: BP 115/88
[2019-08-23 10:00] VITALS: BP 150/90
[2019-08-23 10:05] VITALS: BP 153/87
[2019-08-23 10:10] VITALS: BP 145/94
[2019-08-23 10:15] VITALS: BP 148/88
== END 2019-09-12 | disposition home or self-care (01) ==
LOC: ECT 06:16
DX: F32.2 Major depressive disorder, single episode, severe without psychotic features (principal)
CPT/HCPCS: 90870; J0330; J7040

== ENCOUNTER 2019-09-13 06:50 | Outpatient (RCR) | payer MEDICARE, MEDICAID ==
[~2019-09-13] VITALS: Ht 162.6 cm; Wt 48.1 kg
[2019-09-13 09:42] VITALS: BP 114/89
[2019-09-13] MEDS ORDERED: Atropine Sulfate 0.4mg/ml inj IVP PRN (09:59)
[2019-09-13] MEDS ORDERED: Lidocaine 2% 100mg/5ml Carp IV PRN (09:59)
[2019-09-13 10:00] VITALS: BP 144/90
[2019-09-13 10:05] VITALS: BP 137/83
[2019-09-13 10:10] VITALS: BP 139/93
[2019-09-13 10:15] VITALS: BP 139/93
[2019-10-04] MEDS ORDERED: Methohexital Sodium Syr 100mg/10ml IVP ONE (07:00)
[2019-10-04] MEDS ORDERED: NS 500ML ONE (07:00)
[2019-10-04] MEDS ORDERED: Succinylcholine 20mg/ml 10ml vial ONE (07:00)
[2019-10-04 08:52] VITALS: BP 106/83
[2019-10-04] MEDS ORDERED: Lidocaine 2% 100mg/5ml Carp IV PRN (09:09)
[2019-10-04] MEDS ORDERED: Atropine Sulfate 0.4mg/ml inj IVP PRN (09:09)
[2019-10-04 09:10] VITALS: BP 153/100
[2019-10-04 09:15] VITALS: BP 139/96
[2019-10-04 09:20] VITALS: BP 144/91
[2019-10-04 09:25] VITALS: BP 145/85
== END 2019-10-12 | disposition home or self-care (01) ==
LOC: ECT 06:50
DX: F32.2 Major depressive disorder, single episode, severe without psychotic features (principal)
CPT/HCPCS: 90870; J0330; J7040

== ENCOUNTER 2019-10-27 06:28 | Outpatient (RCR) | payer MEDICARE, MEDICAID ==
[~2019-10-27] VITALS: Ht 162.6 cm; Wt 48.1 kg
[2019-10-27] MEDS ORDERED: Succinylcholine 20mg/ml 10ml vial ONE (06:29)
[2019-10-27] MEDS ORDERED: NS 500ML ONE (06:29)
[2019-10-27] MEDS ORDERED: Methohexital Sodium Syr 100mg/10ml IVP ONE (06:29)
[2019-10-27 10:51] VITALS: BP 114/85
[2019-10-27 11:02] VITALS: BP 163/100
[2019-10-27 11:07] VITALS: BP 161/99
[2019-10-27 11:12] VITALS: BP 147/89
[2019-10-27 11:17] VITALS: BP 143/92
== END 2019-11-12 | disposition home or self-care (01) ==
LOC: ECT 06:28
DX: F32.2 Major depressive disorder, single episode, severe without psychotic features (principal)
CPT/HCPCS: 90870; J0330; J7040

== ENCOUNTER 2019-11-19 05:08 | Outpatient (RCR) | payer MEDICARE, MEDICAID ==
[~2019-11-19] VITALS: Ht 30.5 cm; Wt 0.5 kg
[2019-11-19] VITALS (7 sets, daily range): BP systolic 135–166; BP diastolic 93–96
[2019-12-13] VITALS (7 sets, daily range): BP systolic 121–143; BP diastolic 55–92
[2019-12-13] MEDS ORDERED: Methohexital Sodium Syr 100mg/10ml IVP ONE (06:00)
[2019-12-13] MEDS ORDERED: NS 500ML ONE (06:00)
[2019-12-13] MEDS ORDERED: Succinylcholine 20mg/ml 10ml vial ONE (06:00)
[2019-12-13] MEDS ORDERED: Atropine Sulfate 0.4mg/ml inj IVP PRN (09:24)
== END 2019-12-13 | disposition home or self-care (01) ==
LOC: ECT 05:08
DX: F32.2 Major depressive disorder, single episode, severe without psychotic features (principal)
CPT/HCPCS: 90870; J0330; J7040

== ENCOUNTER 2020-01-07 08:00 | Outpatient (RCR) | payer MEDICARE, MEDICAID ==
[~2020-01-07] VITALS: Ht 162.6 cm; Wt 48.1 kg
[2020-01-07] VITALS (7 sets, daily range): BP systolic 120–153; BP diastolic 79–96
[2020-01-07] MEDS ORDERED: NS 500ML ONE ×2 (08:01)
[2020-01-07] MEDS ORDERED: Succinylcholine 20mg/ml 10ml vial ONE ×2 (08:01)
[2020-01-07] MEDS ORDERED: Methohexita Syr 100mg/10ml IVP ONE ×2 (08:01)
== END 2020-01-12 | disposition home or self-care (01) ==
LOC: ECT 08:00
DX: F32.2 Major depressive disorder, single episode, severe without psychotic features (principal)
CPT/HCPCS: 90870; J0330; J7040

== ENCOUNTER 2020-02-02 04:45 | Outpatient (RCR) | payer MEDICARE, MEDICAID ==
[~2020-02-02] VITALS: Ht 162.6 cm; Wt 88.9 kg
[2020-02-02] VITALS (7 sets, daily range): BP systolic 117–150; BP diastolic 80–92
[2020-02-02] MEDS ORDERED: Succinylcholine 20mg/ml 10ml vial ONE (04:46)
[2020-02-02] MEDS ORDERED: Methohexital Sodium Syr 100mg/10ml IVP ONE (04:46)
[2020-02-02] MEDS ORDERED: NS 500ML ONE (04:46)
== END 2020-02-12 | disposition home or self-care (01) ==
LOC: ECT 04:45
DX: F32.2 Major depressive disorder, single episode, severe without psychotic features (principal); F32.3 Major depressive disorder, single episode, severe with psychotic features
CPT/HCPCS: 90870; J0330; J7040

== ENCOUNTER 2020-03-01 04:32 | Outpatient (RCR) | payer MEDICARE, MEDICAID ==
[2020-03-01] VITALS (7 sets, daily range): BP systolic 125–161; BP diastolic 87–103
[~2020-03-01] VITALS: Ht 162.6 cm; Wt 48.1 kg
[2020-03-01] MEDS ORDERED: Succinylcholine 20mg/ml 10ml vial ONE (06:00)
[2020-03-01] MEDS ORDERED: NS 500ML ONE (06:00)
[2020-03-01] MEDS ORDERED: Methohexita Syr 100mg/10ml IVP ONE (06:00)
== END 2020-03-13 | disposition home or self-care (01) ==
LOC: ECT 04:32
DX: F32.2 Major depressive disorder, single episode, severe without psychotic features (principal)
CPT/HCPCS: 90870; J0330; J7040

== ENCOUNTER 2020-03-29 05:46 | Outpatient (RCR) | payer MEDICARE, MEDICAID ==
[~2020-03-29] VITALS: Ht 162.6 cm; Wt 48.1 kg
[2020-03-31] VITALS (7 sets, daily range): BP systolic 135–166; BP diastolic 93–105
[2020-03-31] MEDS ORDERED: Succinylcholine 20mg/ml 10ml vial ONE (06:00)
[2020-03-31] MEDS ORDERED: NS 500ML ONE (06:00)
[2020-03-31] MEDS ORDERED: Methohexita Syr 100mg/10ml IVP ONE (06:00)
== END 2020-04-13 | disposition home or self-care (01) ==
LOC: ECT 05:46
DX: F32.2 Major depressive disorder, single episode, severe without psychotic features (principal)
CPT/HCPCS: 90870; J0330; J7040

== ENCOUNTER 2020-04-28 05:58 | Outpatient (RCR) | payer MEDICARE, MEDICAID ==
[2020-04-28] VITALS (7 sets, daily range): BP systolic 142–169; BP diastolic 78–107
[~2020-04-28] VITALS: Ht 30.5 cm; Wt 0.5 kg
[2020-04-28] MEDS ORDERED: Succinylcholine 20mg/ml 10ml vial ONE (05:59)
[2020-04-28] MEDS ORDERED: NS 500ML ONE (05:59)
[2020-04-28] MEDS ORDERED: Methohexita Syr 100mg/10ml IVP ONE (05:59)
== END 2020-05-14 | disposition home or self-care (01) ==
LOC: ECT 05:58
DX: F32.2 Major depressive disorder, single episode, severe without psychotic features (principal)
CPT/HCPCS: 90870; J0330; J7040

== ENCOUNTER 2020-05-24 05:13 | Outpatient (RCR) | payer MEDICARE, MEDICAID ==
[2020-05-24] VITALS (7 sets, daily range): BP systolic 118–156; BP diastolic 84–98
[~2020-05-24] VITALS: Ht 162.6 cm; Wt 48.1 kg
[2020-05-24] MEDS ORDERED: NS 500ML ONE (05:14)
[2020-05-24] MEDS ORDERED: Methohexita Syr 100mg/10ml IVP ONE (05:14)
[2020-05-24] MEDS ORDERED: Succinylcholine 20mg/ml 10ml vial ONE (05:14)
== END 2020-06-11 | disposition home or self-care (01) ==
LOC: ECT 05:13
DX: F32.2 Major depressive disorder, single episode, severe without psychotic features (principal)
CPT/HCPCS: 90870; J0330; J7040